=== PATIENT | female | born 1945 | race Caucasian/White ===

== ENCOUNTER 2021-12-24 06:50 | Day surgery (SDC) | payer MEDICARE, OTHER ==
[2021-12-24] VITALS (12 sets, daily range): BP systolic 112–146; BP diastolic 51–71
[~2021-12-24] VITALS: Ht 165.1 cm; Wt 66.7 kg
[2021-12-24] MEDS ORDERED: diphenhydrAMINE 25mg capsule PO PRN (07:10)
[2021-12-24] MEDS ORDERED: normal saline 1,000 ML IV SCH (07:10)
[2021-12-24] MEDS ORDERED: HYDR12.55 PO (07:20)
[2021-12-24] MEDS ORDERED: TELM80TA9 PO (07:20)
[2021-12-24] MEDS ORDERED: FAMO20TA10 PO (07:20)
[2021-12-24] MEDS ORDERED: ROSU10TA2 PO (07:20)
[2021-12-24] MEDS ORDERED: UBIQ100C2 PO (07:21)
[2021-12-24] MEDS ORDERED: ALOE1CAP PO (07:21)
[2021-12-24] MEDS ORDERED: ASPI-1265 PO (07:23)
[2021-12-24] MEDS ORDERED: CHOL200026 PO (07:23)
[2021-12-24 07:43] LABS: BASOPHILS % (AUTO) 1.1 % (0-1); EOSINOPHILS # (AUTO) 0.1 X10'3 (0-0.9); EOSINOPHILS % (AUTO) 2.1 % (0-6); HEMATOCRIT 44.5 % (35.0-45.0); HEMOGLOBIN 15.2 g/dl (12.0-16.0); LYMPHOCYTES # (AUTO) 1.6 X10'3 (1.1-4.8); MEAN CORPUSCULAR HEMOGLOBIN 30.9 PG (27.0-31.0); MEAN CORPUSCULAR HGB CONC 34.2 g/dL (33.0-36.5); MEAN CORPUSCULAR VOLUME 90.5 FL (78-98); MEAN PLATELET VOLUME 7.9 FL (7.4-10.4); MONOCYTES # (AUTO) 0.4 X10'3 (0-0.9); MONOCYTES % (AUTO) 9.3 % (2-12); NEUTROPHILS % (AUTO) 48.5 % (42-75); PLATELET COUNT 271 X10'3 (140-440); RED BLOOD COUNT 4.92 X10'6 (4.20-5.60); RED CELL DISTRIBUTION WIDTH 13.7 % (11.5-14.5); WHITE BLOOD COUNT 4.2 X10'3 (4.5-11.0)
[2021-12-24 08:00] LABS: ALBUMIN 4.3 G/DL (3.4-5.0); ANION GAP 9 (8-16); BLOOD UREA NITROGEN 18 MG/DL (7-18); BUN/CREATININE RATIO 15.5 (6.6-38.0); CALCIUM 9.6 MG/DL (8.5-10.1); CHLORIDE 101 MMOL/L (99-107); CREATININE 1.16 MG/DL (0.40-0.90); GLUCOSE 97 MG/DL (70-104); MAGNESIUM 2.4 MG/DL (1.5-2.4); POTASSIUM 3.6 MMOL/L (3.5-5.1); SODIUM 139 MMOL/L (135-145); TOTAL CARBON DIOXIDE 28.6 MMOL/L (24-32); eGFR 46 ML/MIN
[2021-12-24] MEDS ORDERED: fentaNYL/PF 50MCG/1 ML 2ML syringe ONE (08:45)
[2021-12-24] MEDS ORDERED: verapamil 2.5 mg/ml inj IV ONE (08:45)
[2021-12-24] MEDS ORDERED: midazolam 1 mg/ML 2ml injection ONE (08:45)
[2021-12-24] MEDS ORDERED: nitroGLYCERIN-Tridil 50MG/D5W 250 ML IV ONE (08:45)
[2021-12-24] MEDS ORDERED: iohexol 350MG/ML 100ml bottle IV ONE ×2 (08:46→09:48)
[2021-12-24] MEDS ORDERED: heparin 1,000unit/ml 10ml vial 10 ML ONE (08:46)
[2021-12-24] MEDS ORDERED: LIDOcaine 1% (10mg/ml)w/preservative inj. 20ml MDV ONE (08:46)
[2021-12-24] MEDS ORDERED: iohexol 350 MG/ML 50ML vial IV ONE (08:46)
== END 2021-12-24 14:15 | disposition home or self-care (01) ==
LOC: SSTAY O 06:50
PROVIDERS: ATTEND Internal Medicine Cardiovascular Disease
DX: I71.2 Thoracic aortic aneurysm, without rupture (principal); I35.1 Nonrheumatic aortic (valve) insufficiency; I10 Essential (primary) hypertension; E78.5 Hyperlipidemia, unspecified; G43.909 Migraine, unspecified, not intractable, without status migrainosus; Z72.89 Other problems related to lifestyle; Z90.710 Acquired absence of both cervix and uterus; Z90.722 Acquired absence of ovaries, bilateral; Z79.82 Long term (current) use of aspirin; Z79.899 Other long term (current) drug therapy; Z82.49 Family history of ischemic heart disease and other diseases of the circulatory system
CPT/HCPCS: 36415; 80048; 83735; 85025; 85610; 93005; 93458; 99152; 99153; C1769; C1894; J1644; J2250; J3010; J3490; J7030; Q0163; Q9967; A4620; A6258